=== PATIENT | female | born 1995 | race Caucasian/White ===

== ENCOUNTER 2019-02-12 18:38 | Inpatient (IN) ==
[2019-02-12] MEDS ORDERED: *HR* Labetalol 20 MG/4 ML SYRINGE IVP ONE ×2 (19:05→21:13)
[2019-02-12 19:28] LABS: Basophils % 0.4 %; Eosinophils # 0.1 K/mcL (0.0-0.6); Eosinophils % 1.6 %; Hematocrit 35.1 % (35.3-44.9); Hemoglobin 10.9 g/dL (11.5-15.4); Immature Granulocytes % 0.4 % (0-4); Lymphocytes # 2.1 K/mcL (0.6-4.6); Lymphocytes % 26.3 %; Mean Corpuscular HGB Conc 31.1 g/dL (31.6-35.5); Mean Corpuscular Hemoglobin 22.6 pg (28.0-33.3); Mean Corpuscular Volume 72.8 fL (83.0-100.0); Mean Platelet Volume 10.5 fL (9.4-12.4); Monocytes # 0.7 K/mcL (0.0-1.3); Monocytes % 8.1 %; Neutrophils # 5.1 K/mcL (1.6-8.9); Platelet Count 338 K/mcL (140-400); Red Blood Count 4.82 M/mcL (3.82-4.97); Red Cell Distribution Width 17.9 % (11.5-14.5); Segmented Neutrophils % 63.2 %
[2019-02-12 19:41] LABS: Prothrombin Time 11.3 Seconds (9.4-12.1)
[2019-02-12 19:44] LABS: Activated Partial Thrombo Time 32.5 Seconds (26.0-36.0)
[2019-02-12 19:46] LABS: Alanine Aminotransferase 11 Units/L (7-52); Albumin 4.2 g/dL (3.5-5.7); Albumin/Globulin Ratio 1.6 (1.1-2.2); Alkaline Phosphatase 68 Units/L (34-104); Aspartate Amino Transferase 13 Units/L (13-39); BUN/Creatinine Ratio 11 (6-26); Bilirubin,Direct 0.1 mg/dL (0.0-0.2); Bilirubin,Indirect 0.2 mg/dL (0.0-1.2); Bilirubin,Total 0.3 mg/dL (0.3-1.0); Blood Urea Nitrogen 18 mg/dL (6-20); Calcium 9.8 mg/dL (8.6-10.3); Carbon Dioxide 25 mEq/L (23-29); Chloride 104 mEq/L (98-107); Globulin 2.7 g/dL (2.4-3.5); Glucose 98 mg/dL (70-105); Osmolality,Calculated 284 (280-300); Potassium 3.7 mEq/L (3.5-5.1); Sodium 136 mEq/L (136-145); Total Protein 6.9 g/dL (6.4-8.9); eGFR For African Americans 47 (> 60); eGFR For Non-African Americans 39 (> 60)
[2019-02-12 20:28] LABS: Bilirubin,Urine Negative (Negative); Blood,Urine Moderate (Negative); Clarity,Urine Clear (Clear); Color,Urine Yellow (Yellow); Glucose,Urine (UA) Normal (Normal); Ketones,Urine Negative (Negative); Leukocyte Esterase,Urine Negative (Negative); Nitrite,Urine Negative (Negative); PH,Urine 5.5 pH Units (5.0-8.0); Protein,Urine >=300 mg/dL (Neg-Trace); Specific Gravity,Urine >= 1.030 (1.010-1.025); Urobilinogen,Urine Normal (Normal)
[2019-02-12 20:40] LABS: Hyaline Casts,Urine Few per lpf (None-Few); Squamous Epithelial Cell,Urine Many per lpf (None-Few)
[2019-02-12 20:41] LABS: RBC,Urine 0-3 per hpf (0-3)
[2019-02-12] MEDS ORDERED: Esmolol 2.5 GM/250 ML MLS IVC ONE (21:45)
[2019-02-12] MEDS: Esmolol 2.5 GM/250 ML MLS IVC SCH (21:56)
[2019-02-12 22:05] LABS: Troponin I < 0.03 ng/mL (< 0.04)
[2019-02-13] MEDS ORDERED: Ondansetron 4 MG/2 ML VIAL IVP PRN ×2 (01:24→18:25)
[2019-02-13] MEDS ORDERED: Naloxone 0.4 MG/ML INJ IVP PRN ×2 (01:24→18:25)
[2019-02-13] MEDS: Esmolol 2.5 GM/250 ML MLS IVC SCH ×4 (02:01→10:01)
[2019-02-13] MEDS: Acetaminophen 325 MG TABLET PO PRN ×2 (02:23→09:09)
[2019-02-13 04:43] LABS: Basophils % 0.6 %; Eosinophils # 0.2 K/mcL (0.0-0.6); Eosinophils % 2.3 %; Hemoglobin 10.2 g/dL (11.5-15.4); Immature Granulocytes % 0.3 % (0-4); Mean Corpuscular Hemoglobin 22.6 pg (28.0-33.3); Mean Corpuscular Volume 75.2 fL (83.0-100.0); Mean Platelet Volume 10.3 fL (9.4-12.4); Monocytes # 0.6 K/mcL (0.0-1.3); Neutrophils # 3.9 K/mcL (1.6-8.9); Platelet Count 328 K/mcL (140-400); Red Blood Count 4.52 M/mcL (3.82-4.97); Red Cell Distribution Width 18.4 % (11.5-14.5); Segmented Neutrophils % 57.8 %; White Blood Count 6.7 K/mcL (4.3-11.1)
[2019-02-13] MEDS ORDERED: traMADol 50 MG TABLET PO ONE (04:56)
[2019-02-13 05:02] LABS: Calcium 8.8 mg/dL (8.6-10.3); Potassium 3.4 mEq/L (3.5-5.1)
[2019-02-13] MEDS ORDERED: NIFEdipine XL (24 HR) 30 MG TAB.ER.24 PO SCH (09:00)
[2019-02-13 12:10] LABS: Amphetamine Screen,Urine Negative ng/mL (Cutoff=1000); Barbiturate Screen,Urine Negative ng/mL (Cutoff=200); Benzodiazepines Screen,Urine Negative ng/mL (Cutoff=200); Cannabinoid Screen,Urine Negative ng/mL (Cutoff = 50); Cocaine Screen,Urine Negative ng/mL (Cutoff= 300); Opiate Screen,Urine Negative ng/mL (Cutoff=300); Phencyclidine Screen,Urine Negative ng/mL (Cutoff=25)
[2019-02-13 12:30] LABS: Creatinine,Urine 120 mg/dL; Protein/Creatinine Ratio,Urine 1.98 mg/mg (0.00-0.20)
[2019-02-13] MEDS ORDERED: Acetaminophen 325 MG TABLET PO PRN (18:25)
[2019-02-13] MEDS: NIFEdipine 10 MG CAPSULE PO SCH (21:35)
[2019-02-14 05:08] LABS: Basophils % 0.2 %; Eosinophils # 0.1 K/mcL (0.0-0.6); Eosinophils % 1.3 %; Hematocrit 33.5 % (35.3-44.9); Hemoglobin 10.2 g/dL (11.5-15.4); Immature Granulocytes % 0.2 % (0-4); Lymphocytes # 1.5 K/mcL (0.6-4.6); Lymphocytes % 17.1 %; Mean Corpuscular HGB Conc 30.4 g/dL (31.6-35.5); Mean Corpuscular Hemoglobin 22.7 pg (28.0-33.3); Mean Corpuscular Volume 74.6 fL (83.0-100.0); Mean Platelet Volume 10.7 fL (9.4-12.4); Monocytes # 0.6 K/mcL (0.0-1.3); Monocytes % 7.4 %; Neutrophils # 6.3 K/mcL (1.6-8.9); Platelet Count 322 K/mcL (140-400); Red Blood Count 4.49 M/mcL (3.82-4.97); Red Cell Distribution Width 18.6 % (11.5-14.5); Segmented Neutrophils % 73.8 %; White Blood Count 8.5 K/mcL (4.3-11.1)
[2019-02-14 05:29] LABS: BUN/Creatinine Ratio 11 (6-26); Blood Urea Nitrogen 14 mg/dL (6-20); Calcium 8.8 mg/dL (8.6-10.3); Carbon Dioxide 22 mEq/L (23-29); Chloride 107 mEq/L (98-107); Glucose 105 mg/dL (70-105); Osmolality,Calculated 283 (280-300); Potassium 3.7 mEq/L (3.5-5.1); Sodium 136 mEq/L (136-145); eGFR For African Americans > 60 (> 60); eGFR For Non-African Americans 50 (> 60)
[2019-02-14] MEDS: NIFEdipine 10 MG CAPSULE PO SCH (08:30)
[2019-02-14 11:12] VITALS: BP 147/84
== END 2019-02-14 13:13 | disposition home or self-care (01) | DRG 305 ==
LOC: EMEROOARM 18:38 → ICNU 18:38 → SUATTDRO 02-13 04:12 → 2ANU 02-13 18:13
PROVIDERS: ADMIT Internal Medicine; ATTEND Internal Medicine

== ENCOUNTER 2019-04-01 17:57 | Observation (INO) ==
[2019-04-01] MEDS ORDERED: 0.9 % Sodium Chloride 1,000 ML ONE (18:08)
[2019-04-01] MEDS ORDERED: *HR* Metoprolol 5 MG/5 ML VIAL IVP ONE (18:16)
[2019-04-01] MEDS ORDERED: 0.9 % Sodium Chloride 1,000 ML IVC ONE (18:18)
[2019-04-01] MEDS ORDERED: *HR* Adenosine 6 MG/2 ML VIAL IVP ONE ×3 (18:24)
[2019-04-01] MEDS ORDERED: *HR* LORazepam 2 MG/ML VIAL ONE (18:25)
[2019-04-01] MEDS ORDERED: *HR* LORazepam 2 MG/ML VIAL IVP ONE (18:27)
[2019-04-01] MEDS ORDERED: *HR* Adenosine 6 MG/2 ML SYRINGE IVP ONE ×2 (18:30)
[2019-04-01 18:32] LABS: Prothrombin Time 10.8 Seconds (9.4-12.1)
[2019-04-01 18:35] LABS: Activated Partial Thrombo Time 33.1 Seconds (26.0-36.0); Basophils % 0.3 %; Eosinophils # 0.2 K/mcL (0.0-0.6); Eosinophils % 2.6 %; Hematocrit 40.8 % (35.3-44.9); Hemoglobin 13.1 g/dL (11.5-15.4); Immature Granulocytes % 0.5 % (0-4); Lymphocytes # 3.2 K/mcL (0.6-4.6); Lymphocytes % 36.1 %; Mean Corpuscular HGB Conc 32.1 g/dL (31.6-35.5); Mean Corpuscular Hemoglobin 25.6 pg (28.0-33.3); Mean Corpuscular Volume 79.8 fL (83.0-100.0); Mean Platelet Volume 11.5 fL (9.4-12.4); Monocytes # 0.7 K/mcL (0.0-1.3); Monocytes % 8.4 %; Neutrophils # 4.6 K/mcL (1.6-8.9); Platelet Count 371 K/mcL (140-400); Red Blood Count 5.11 M/mcL (3.82-4.97); Red Cell Distribution Width 18.5 % (11.5-14.5); Segmented Neutrophils % 52.1 %; White Blood Count 8.8 K/mcL (4.3-11.1)
[2019-04-01 18:54] LABS: Calcium 9.5 mg/dL (8.6-10.3); Magnesium 1.9 mg/dL (1.6-2.6); Potassium 2.9 mEq/L (3.5-5.1); Troponin I 0.03 ng/mL (< 0.04)
[2019-04-01] MEDS ORDERED: Potassium Chloride 40 MEQ, Lidocaine 1% 2 ML in 0.9 % Sodium Chloride 500 ML IVPB ONE (18:56)
[2019-04-01 19:07] LABS: Thyroid Stimulating Hormone 2.026 mcIU/mL (0.340-5.600)
[2019-04-01] MEDS ORDERED: Acetaminophen 325 MG TABLET PO PRN (20:46)
[2019-04-01] MEDS ORDERED: Ringers Solution, Lactated 1,000 ML IVC SCH (21:00)
[2019-04-01] MEDS: cloNIDine HCl 0.1 MG TABLET PO SCH (23:18)
[2019-04-01] MEDS: *HR* Heparin 5,000 UNIT/ML VIAL SQ SCH (23:19)
[2019-04-02 01:12] LABS: Bilirubin,Urine Negative (Negative); Blood,Urine Large (Negative); Clarity,Urine Cloudy (Clear); Color,Urine Red (Yellow); Glucose,Urine (UA) Normal (Normal); Ketones,Urine Negative (Negative); Leukocyte Esterase,Urine Trace (Negative); Nitrite,Urine Negative (Negative); Protein,Urine 100 mg/dL (Neg-Trace); Specific Gravity,Urine 1.014 (1.010-1.025); Urobilinogen,Urine Normal (Normal)
[2019-04-02 01:28] LABS: Amphetamine Screen,Urine Negative ng/mL (Cutoff=1000); Barbiturate Screen,Urine Negative ng/mL (Cutoff=200); Benzodiazepines Screen,Urine Negative ng/mL (Cutoff=200); Cannabinoid Screen,Urine Negative ng/mL (Cutoff = 50); Cocaine Screen,Urine Negative ng/mL (Cutoff= 300); Opiate Screen,Urine Negative ng/mL (Cutoff=300); Phencyclidine Screen,Urine Negative ng/mL (Cutoff=25)
[2019-04-02] MEDS: NIFEdipine XL (24 HR) 60 MG TAB.ER.24 PO SCH ×2 (01:35→09:34)
[2019-04-02 02:17] LABS: Calcium 8.5 mg/dL (8.6-10.3); Magnesium 1.9 mg/dL (1.6-2.6); Phosphorous 3.3 mg/dL (2.7-4.5); Potassium 3.8 mEq/L (3.5-5.1)
[2019-04-02] MEDS: *HR* Heparin 5,000 UNIT/ML VIAL SQ SCH (06:55)
[2019-04-02] MEDS ORDERED: 0.9 % Sodium Chloride 1,000 ML IVC SCH (08:00)
[2019-04-02] MEDS: cloNIDine HCl 0.1 MG TABLET PO SCH (09:34)
[2019-04-02 11:22] VITALS: BP 139/91
== END 2019-04-02 15:35 | disposition home or self-care (01) ==
LOC: 2NNU 17:57 → EMEROOARM 17:57 → 2NNU 21:45
PROVIDERS: ADMIT Internal Medicine; ATTEND Internal Medicine

== ENCOUNTER 2020-09-08 13:17 | Inpatient (IN) ==
[2020-09-08] MEDS ORDERED: Naloxone 0.4 MG/ML INJ IVP PRN (17:31)
[2020-09-08] MEDS ORDERED: Ondansetron 4 MG/2 ML VIAL IVP PRN (17:31)
[2020-09-08] MEDS: 0.9 % Sodium Chloride 1,000 ML IVC SCH (18:06)
[2020-09-08] MEDS: predniSONE 20 MG TABLET PO SCH (18:06)
[2020-09-08 18:18] LABS: Basophils % 0.3 %; Eosinophils # 0.2 K/mcL (0.0-0.6); Eosinophils % 3.5 %; Hemoglobin 8.4 g/dL (11.5-15.4); Immature Granulocytes % 0.3 % (0-4); Lymphocytes # 1.4 K/mcL (0.6-4.6); Lymphocytes % 20.2 %; Mean Corpuscular HGB Conc 33.6 g/dL (31.6-35.5); Mean Corpuscular Hemoglobin 28.5 pg (28.0-33.3); Mean Corpuscular Volume 84.7 fL (83.0-100.0); Mean Platelet Volume 9.7 fL (9.4-12.4); Monocytes # 0.7 K/mcL (0.0-1.3); Monocytes % 9.8 %; Neutrophils # 4.6 K/mcL (1.6-8.9); Platelet Count 274 K/mcL (140-400); Red Blood Count 2.95 M/mcL (3.82-4.97); Red Cell Distribution Width 13.7 % (11.5-14.5); Segmented Neutrophils % 65.9 %; White Blood Count 6.9 K/mcL (4.3-11.1)
[2020-09-08 18:37] LABS: Calcium 8.9 mg/dL (8.6-10.3); Potassium 4.1 mEq/L (3.5-5.1)
[2020-09-09 00:27] LABS: Bilirubin,Urine Negative (Negative); Blood,Urine Large (Negative); Clarity,Urine Turbid (Clear); Color,Urine Light-Brown (Yellow); Glucose,Urine (UA) 50 mg/dL (Normal); Ketones,Urine Negative (Negative); Leukocyte Esterase,Urine Negative (Negative); Mucus,Urine Few per lpf (None-Few); Nitrite,Urine Negative (Negative); Protein,Urine >=300 mg/dL (Neg-Trace); RBC,Urine TNTC per hpf (0-3); Specific Gravity,Urine 1.009 (1.010-1.025); Squamous Epithelial Cell,Urine Few per hpf (None-Few); Urobilinogen,Urine Normal (Normal); WBC,Urine 50-100 per hpf (0-3)
[2020-09-09 00:56] LABS: Protein/Creatinine Ratio,Urine 9.6 mg/mg (0.00-0.20)
[2020-09-09 03:56] LABS: Basophils % 0.1 %; Hematocrit 23.8 % (35.3-44.9); Hemoglobin 7.9 g/dL (11.5-15.4); Immature Granulocytes % 0.7 % (0-4); Lymphocytes # 0.5 K/mcL (0.6-4.6); Lymphocytes % 6.6 %; Mean Corpuscular HGB Conc 33.2 g/dL (31.6-35.5); Mean Corpuscular Hemoglobin 28.1 pg (28.0-33.3); Mean Corpuscular Volume 84.7 fL (83.0-100.0); Mean Platelet Volume 9.8 fL (9.4-12.4); Monocytes # 0.1 K/mcL (0.0-1.3); Monocytes % 1.1 %; Neutrophils # 6.9 K/mcL (1.6-8.9); Platelet Count 280 K/mcL (140-400); Red Blood Count 2.81 M/mcL (3.82-4.97); Red Cell Distribution Width 13.7 % (11.5-14.5); Segmented Neutrophils % 91.5 %; White Blood Count 7.5 K/mcL (4.3-11.1)
[2020-09-09 04:05] LABS: INR 1.1; Prothrombin Time 12.6 Seconds (9.4-12.1)
[2020-09-09 04:13] LABS: Albumin 3.6 g/dL (3.5-5.7); Calcium 8.5 mg/dL (8.6-10.3); Magnesium 2.5 mg/dL (1.6-2.6); Phosphorous 7.5 mg/dL (2.7-4.5); Potassium 4.8 mEq/L (3.5-5.1)
[2020-09-09] MEDS: NIFEdipine XL (24 HR) 60 MG TAB.ER.24 PO SCH (08:12)
[2020-09-09] MEDS: estradioL 0.5 MG TABLET PO SCH (08:13)
[2020-09-09] MEDS: predniSONE 20 MG TABLET PO SCH (08:13)
[2020-09-09] MEDS: 0.9 % Sodium Chloride 1,000 ML IVC SCH (08:13)
[2020-09-09] MEDS: Acetaminophen 325 MG TABLET PO PRN (08:13)
[2020-09-09] MEDS ORDERED: cloNIDine HCL 0.1 MG TABLET PO PRN (08:31)
[2020-09-09] MEDS ORDERED: *HR* Labetalol 20 MG/4 ML SYRINGE IVP ONE (11:41)
[2020-09-09] MEDS ORDERED: *HR* FentaNYL (PF) 100 MCG/2 ML VIAL ONE (11:42)
[2020-09-09] MEDS ORDERED: *HR* Midazolam HCl 2 MG/2 ML VIAL ONE (11:42)
[2020-09-09] MEDS ORDERED: 0.9 % Sodium Chloride 500 ML ONE (11:43)
[2020-09-09] MEDS ORDERED: *HR* FentaNYL (PF) 100 MCG/2 ML VIAL IVP ONE (11:44)
[2020-09-09] MEDS ORDERED: *HR* Midazolam HCl 2 MG/2 ML VIAL IVP ONE (11:44)
[2020-09-09] MEDS: Nitroglycerin 1 INCH/GM PACKET TP SCH (13:15)
[2020-09-09] MEDS ORDERED: Desmopressin Acetate 30 MCG in 0.9 % Sodium Chloride 50 ML IVPB ONE (14:30)
[2020-09-09 19:44] LABS: Hematocrit 20.4 % (35.3-44.9); Hemoglobin 6.8 g/dL (11.5-15.4)
[2020-09-10 03:06] LABS: Basophils % 0.1 %; Hematocrit 18.9 % (35.3-44.9); Hemoglobin 6.2 g/dL (11.5-15.4); Immature Granulocytes % 0.9 % (0-4); Lymphocytes # 0.6 K/mcL (0.6-4.6); Lymphocytes % 5.9 %; Mean Corpuscular HGB Conc 32.8 g/dL (31.6-35.5); Mean Corpuscular Hemoglobin 28.4 pg (28.0-33.3); Mean Corpuscular Volume 86.7 fL (83.0-100.0); Mean Platelet Volume 10.1 fL (9.4-12.4); Monocytes # 0.9 K/mcL (0.0-1.3); Monocytes % 8.7 %; Neutrophils # 8.8 K/mcL (1.6-8.9); Platelet Count 224 K/mcL (140-400); Red Blood Count 2.18 M/mcL (3.82-4.97); Red Cell Distribution Width 14.6 % (11.5-14.5); Segmented Neutrophils % 84.4 %; White Blood Count 10.4 K/mcL (4.3-11.1)
[2020-09-10 03:22] LABS: Calcium 8.2 mg/dL (8.6-10.3); Potassium 4.2 mEq/L (3.5-5.1)
[2020-09-10] MEDS: Nitroglycerin 1 INCH/GM PACKET TP SCH ×2 (05:46→11:03)
[2020-09-10] MEDS: Acetaminophen 325 MG TABLET PO PRN ×2 (05:48→12:06)
[2020-09-10] MEDS: estradioL 0.5 MG TABLET PO SCH (08:23)
[2020-09-10] MEDS: NIFEdipine XL (24 HR) 60 MG TAB.ER.24 PO SCH (08:23)
[2020-09-10] MEDS: predniSONE 20 MG TABLET PO SCH (08:24)
[2020-09-10 15:38] LABS: Complement C3 108 mg/dL (87-200)
[2020-09-10 16:53] LABS: Bacteria,Urine Few per hpf (None-Few); Bilirubin,Urine Negative (Negative); Blood,Urine Large (Negative); Clarity,Urine Turbid (Clear); Color,Urine Colorless (Yellow); Glucose,Urine (UA) 70 mg/dL (Normal); Ketones,Urine Negative (Negative); Leukocyte Esterase,Urine Trace (Negative); Mucus,Urine Few per lpf (None-Few); Nitrite,Urine Negative (Negative); PH,Urine 6.5 pH Units (5.0-8.0); Protein,Urine >=300 mg/dL (Neg-Trace); RBC,Urine TNTC per hpf (0-3); Specific Gravity,Urine 1.013 (1.010-1.025); Squamous Epithelial Cell,Urine Few per hpf (None-Few); Urobilinogen,Urine Normal (Normal); WBC,Urine 15-30 per hpf (0-3)
[2020-09-10 18:38] LABS: Hematocrit 25.6 % (35.3-44.9)
[2020-09-10 18:39] LABS: Hemoglobin 8.5 g/dL (11.5-15.4)
[2020-09-10 18:57] LABS: Calcium 8.6 mg/dL (8.6-10.3); Potassium 4.5 mEq/L (3.5-5.1)
[2020-09-11 02:02] LABS: Basophils % 0.1 %; Hematocrit 24.6 % (35.3-44.9); Hemoglobin 8.2 g/dL (11.5-15.4); Immature Granulocytes % 5.2 % (0-4); Lymphocytes # 0.6 K/mcL (0.6-4.6); Lymphocytes % 5.3 %; Mean Corpuscular HGB Conc 33.3 g/dL (31.6-35.5); Mean Platelet Volume 9.5 fL (9.4-12.4); Monocytes # 0.4 K/mcL (0.0-1.3); Monocytes % 2.9 %; Neutrophils # 10.3 K/mcL (1.6-8.9); Platelet Count 232 K/mcL (140-400); Red Blood Count 2.93 M/mcL (3.82-4.97); Red Cell Distribution Width 13.9 % (11.5-14.5); Segmented Neutrophils % 86.5 %; White Blood Count 11.9 K/mcL (4.3-11.1)
[2020-09-11 02:19] LABS: Calcium 8.1 mg/dL (8.6-10.3); Potassium 4.7 mEq/L (3.5-5.1)
[2020-09-11 02:37] LABS: Platelet Estimate Normal (Normal)
[2020-09-11] MEDS: Nitroglycerin 1 INCH/GM PACKET TP SCH ×2 (05:46→10:10)
[2020-09-11] MEDS: predniSONE 20 MG TABLET PO SCH (08:45)
[2020-09-11] MEDS: NIFEdipine XL (24 HR) 60 MG TAB.ER.24 PO SCH (08:45)
[2020-09-11] MEDS: estradioL 0.5 MG TABLET PO SCH (08:45)
[2020-09-11] MEDS: Acetaminophen 325 MG TABLET PO PRN (10:06)
[2020-09-11] MEDS ORDERED: Sennosides/Docusate Sodium TABLET PO PRN (12:52)
[2020-09-12 02:49] LABS: Basophils % 0.2 %; Eosinophils % 0.1 %; Hematocrit 24.2 % (35.3-44.9); Immature Granulocytes % 5.5 % (0-4); Lymphocytes # 0.8 K/mcL (0.6-4.6); Mean Corpuscular HGB Conc 33.1 g/dL (31.6-35.5); Mean Corpuscular Hemoglobin 27.9 pg (28.0-33.3); Mean Corpuscular Volume 84.3 fL (83.0-100.0); Mean Platelet Volume 10.4 fL (9.4-12.4); Monocytes % 9.3 %; Neutrophils # 8.4 K/mcL (1.6-8.9); Platelet Count 245 K/mcL (140-400); Red Blood Count 2.87 M/mcL (3.82-4.97); Segmented Neutrophils % 77.9 %; White Blood Count 10.8 K/mcL (4.3-11.1)
[2020-09-12 03:11] LABS: Calcium 8.1 mg/dL (8.6-10.3); Potassium 4.8 mEq/L (3.5-5.1)
[2020-09-12 03:20] LABS: Anisocytosis 1+ (Not Present); Microcytosis Present (Not Present)
[2020-09-12 03:21] LABS: Platelet Estimate Normal (Normal)
[2020-09-12] MEDS: NIFEdipine XL (24 HR) 60 MG TAB.ER.24 PO SCH (08:00)
[2020-09-12] MEDS: estradioL 0.5 MG TABLET PO SCH (08:00)
[2020-09-12] MEDS: predniSONE 20 MG TABLET PO SCH (08:01)
[2020-09-12] MEDS ORDERED: *HR* Heparin 10,000 UNIT/10 ML VIAL IV PRN (09:21)
[2020-09-12] MEDS ORDERED: 0.9 % Sodium Chloride 250 ML IVC PRN (09:21)
[2020-09-12] MEDS ORDERED: 0.9 % Sodium Chloride 1,000 ML PRIME SCH (09:30)
[2020-09-12] MEDS: Acetaminophen 325 MG TABLET PO PRN ×2 (10:03→18:28)
[2020-09-12 10:28] LABS: Hepatitis B Surface Antibody < 3.10 mIU/mL
[2020-09-12] MEDS ORDERED: Heparin 1,000 UNITS/500 mL 500 ML ONE (10:36)
[2020-09-12] MEDS ORDERED: Lidocaine/EPI 1:100k 1% 50 ML VIAL ONE (10:37)
[2020-09-12 10:39] LABS: Hepatitis B Surface Antigen Nonreactive (Nonreactive)
[2020-09-12] MEDS ORDERED: Perflutren Lipid Microsphere 1.3 ML in 0.9 % Sodium Chloride 8.7 ML IVP PRN (10:50)
[2020-09-12] MEDS ORDERED: *HR* LORazepam 2 MG/ML VIAL IVP ONE (11:16)
[2020-09-12] MEDS ORDERED: *HR* Heparin 5,000 UNIT/ML VIAL ONE (12:30)
[2020-09-12] MEDS ORDERED: NIFEdipine XL (24 HR) 30 MG TAB.ER.24 PO ONE (14:58)
[2020-09-13 02:52] LABS: Basophils % 0.2 %; Eosinophils % 0.1 %; Hematocrit 24.3 % (35.3-44.9); Hemoglobin 8.3 g/dL (11.5-15.4); Immature Granulocytes % 4.3 % (0-4); Lymphocytes # 1.2 K/mcL (0.6-4.6); Lymphocytes % 12.2 %; Mean Corpuscular HGB Conc 34.2 g/dL (31.6-35.5); Mean Corpuscular Hemoglobin 28.3 pg (28.0-33.3); Mean Corpuscular Volume 82.9 fL (83.0-100.0); Mean Platelet Volume 9.5 fL (9.4-12.4); Monocytes # 1.2 K/mcL (0.0-1.3); Monocytes % 12.2 %; Neutrophils # 7.2 K/mcL (1.6-8.9); Platelet Count 216 K/mcL (140-400); Red Blood Count 2.93 M/mcL (3.82-4.97); Red Cell Distribution Width 13.9 % (11.5-14.5); White Blood Count 10.1 K/mcL (4.3-11.1)
[2020-09-13 03:11] LABS: Calcium 8.1 mg/dL (8.6-10.3)
[2020-09-13] MEDS ORDERED: *HR* Heparin 10,000 UNIT/10 ML VIAL IV PRN (07:23)
[2020-09-13] MEDS ORDERED: 0.9 % Sodium Chloride 250 ML IVC PRN (07:23)
[2020-09-13] MEDS: predniSONE 20 MG TABLET PO SCH (08:11)
[2020-09-13] MEDS: estradioL 0.5 MG TABLET PO SCH (08:11)
[2020-09-13] MEDS: NIFEdipine XL (24 HR) 30 MG TAB.ER.24 PO SCH (08:11)
[2020-09-13] MEDS: Acetaminophen 325 MG TABLET PO PRN ×2 (08:13→16:31)
[2020-09-13] MEDS: cloNIDine HCL 0.1 MG TABLET PO PRN (16:35)
[2020-09-14] MEDS: cloNIDine HCL 0.1 MG TABLET PO PRN (03:54)
[2020-09-14 05:48] LABS: Basophils % 0.1 %; Eosinophils # 0.1 K/mcL (0.0-0.6); Eosinophils % 0.5 %; Hematocrit 24.6 % (35.3-44.9); Hemoglobin 8.2 g/dL (11.5-15.4); Immature Granulocytes % 1.9 % (0-4); Lymphocytes % 17.9 %; Mean Corpuscular HGB Conc 33.3 g/dL (31.6-35.5); Mean Corpuscular Hemoglobin 28.6 pg (28.0-33.3); Mean Corpuscular Volume 85.7 fL (83.0-100.0); Mean Platelet Volume 10.1 fL (9.4-12.4); Monocytes # 1.3 K/mcL (0.0-1.3); Monocytes % 12.3 %; Neutrophils # 7.3 K/mcL (1.6-8.9); Platelet Count 203 K/mcL (140-400); Red Blood Count 2.87 M/mcL (3.82-4.97); Red Cell Distribution Width 13.7 % (11.5-14.5); Segmented Neutrophils % 67.3 %; White Blood Count 10.9 K/mcL (4.3-11.1)
[2020-09-14 06:14] LABS: Calcium 8.2 mg/dL (8.6-10.3); Potassium 4.1 mEq/L (3.5-5.1)
[2020-09-14 06:52] LABS: ANA IgG by ELISA NONE DETECTED (None Detected)
[2020-09-14] MEDS: estradioL 0.5 MG TABLET PO SCH (07:19)
[2020-09-14] MEDS: predniSONE 20 MG TABLET PO SCH (07:20)
[2020-09-14] MEDS: NIFEdipine XL (24 HR) 30 MG TAB.ER.24 PO SCH (07:20)
[2020-09-14] MEDS: Acetaminophen 325 MG TABLET PO PRN ×2 (07:22→14:42)
[2020-09-14] MEDS ORDERED: *HR* Heparin 10,000 UNIT/10 ML VIAL IV PRN (07:22)
[2020-09-14] MEDS ORDERED: 0.9 % Sodium Chloride 250 ML IVC PRN (07:22)
[2020-09-14] MEDS ORDERED: DilTIAZem CD (24hr) 180 MG CAP.ER.24H PO SCH (09:00)
[2020-09-14 11:48] LABS: Serine Protease-3 Antibody 1 AU/mL (0-19)
[2020-09-14] MEDS: NIFEdipine XL (24 HR) 60 MG TAB.ER.24 PO SCH (20:04)
[2020-09-15] MEDS: cloNIDine HCL 0.1 MG TABLET PO PRN (00:19)
[2020-09-15] MEDS: Acetaminophen 325 MG TABLET PO PRN (02:20)
[2020-09-15 02:32] LABS: Hematocrit 24.7 % (35.3-44.9); Hemoglobin 8.2 g/dL (11.5-15.4); Mean Corpuscular HGB Conc 33.2 g/dL (31.6-35.5); Mean Corpuscular Hemoglobin 28.4 pg (28.0-33.3); Mean Corpuscular Volume 85.5 fL (83.0-100.0); Mean Platelet Volume 10.1 fL (9.4-12.4); Platelet Count 193 K/mcL (140-400); Red Blood Count 2.89 M/mcL (3.82-4.97); Red Cell Distribution Width 13.5 % (11.5-14.5); White Blood Count 11.3 K/mcL (4.3-11.1)
[2020-09-15 02:54] LABS: Calcium 7.9 mg/dL (8.6-10.3); Potassium 3.9 mEq/L (3.5-5.1)
[2020-09-15] MEDS: predniSONE 20 MG TABLET PO SCH (07:51)
[2020-09-15] MEDS: estradioL 0.5 MG TABLET PO SCH (07:52)
[2020-09-15] MEDS: NIFEdipine XL (24 HR) 60 MG TAB.ER.24 PO SCH ×2 (07:52→20:12)
[2020-09-15] MEDS ORDERED: hydrALAZINE 25 MG TABLET PO SCH (16:00)
[2020-09-15] MEDS: hydrALAZINE 25 MG TABLET PO SCH ×2 (16:06→20:12)
[2020-09-16 05:26] LABS: Hematocrit 24.2 % (35.3-44.9); Mean Corpuscular HGB Conc 33.1 g/dL (31.6-35.5); Mean Corpuscular Hemoglobin 28.4 pg (28.0-33.3); Mean Corpuscular Volume 85.8 fL (83.0-100.0); Mean Platelet Volume 10.2 fL (9.4-12.4); Platelet Count 193 K/mcL (140-400); Red Blood Count 2.82 M/mcL (3.82-4.97); Red Cell Distribution Width 13.8 % (11.5-14.5); White Blood Count 12.2 K/mcL (4.3-11.1)
[2020-09-16 05:55] LABS: Phosphorous 5.1 mg/dL (2.7-4.5); Potassium 3.9 mEq/L (3.5-5.1)
[2020-09-16] MEDS ORDERED: 0.9 % Sodium Chloride 250 ML IVC PRN (07:11)
[2020-09-16] MEDS ORDERED: *HR* Heparin 10,000 UNIT/10 ML VIAL IV PRN (07:11)
[2020-09-16] MEDS ORDERED: 0.9 % Sodium Chloride 1,000 ML PRIME SCH (07:15)
[2020-09-16] MEDS: estradioL 0.5 MG TABLET PO SCH (12:14)
[2020-09-16] MEDS: predniSONE 20 MG TABLET PO SCH (12:14)
[2020-09-16] MEDS ORDERED: Iron Sucrose Complex 200 MG in 0.9 % Sodium Chloride 100 ML IVPB ONE (12:14)
[2020-09-16] MEDS: hydrALAZINE 25 MG TABLET PO SCH ×2 (12:15→16:24)
[2020-09-16] MEDS: NIFEdipine XL (24 HR) 60 MG TAB.ER.24 PO SCH (12:15)
[2020-09-16] MEDS ORDERED: *HR* LORazepam 2 MG/ML VIAL IVP ONE (12:31)
[2020-09-16] MEDS ORDERED: *HR* FentaNYL (PF) 100 MCG/2 ML VIAL IVP ONE (12:38)
[2020-09-16] MEDS ORDERED: *HR* Midazolam HCl 2 MG/2 ML VIAL IVP ONE (12:38)
[2020-09-16] MEDS ORDERED: Lidocaine/EPI 1:100k 1% 50 ML VIAL ONE (12:47)
[2020-09-16] MEDS ORDERED: Heparin 1,000 UNITS/500 mL 500 ML ONE (12:47)
[2020-09-16] MEDS ORDERED: CeFAZolin 2,000 MG/50 ML BAG IVPB ONE (13:00)
[2020-09-16] MEDS ORDERED: 0.9 % Sodium Chloride 500 ML ONE (13:04)
[2020-09-16] MEDS ORDERED: *HR* Heparin 5,000 UNIT/ML VIAL ONE (13:31)
[2020-09-16 15:35] VITALS: BP 183/101
[2020-09-16] MEDS: Acetaminophen 325 MG TABLET PO PRN (16:24)
== END 2020-09-16 16:43 | disposition home or self-care (01) | DRG 469 ==
LOC: 2ANU → SUATTDRO 17:20
PROVIDERS: ADMIT Internal Medicine; ATTEND Student in an Organized Health Care Education/Training Program
PROC: IRPERMA (2020-09-16 12:00)

== ENCOUNTER 2020-11-03 16:53 | Inpatient (IN) ==
[2020-11-03] MEDS ORDERED: 0.9 % Sodium Chloride 1,000 ML ONE (16:56)
[2020-11-03] MEDS ORDERED: Calcium Gluconate 1gm/50mL 1 GM/50 ML BAG IVPB ONE ×2 (17:08→17:21)
[2020-11-03] MEDS ORDERED: *HR* Adenosine 6 MG/2 ML SYRINGE IVP ONE ×2 (17:10)
[2020-11-03] MEDS ORDERED: niCARdipine 20 MG/200 ML MLS IVC ONE (17:35)
[2020-11-03] MEDS: niCARdipine 20 MG/200 ML MLS IVC SCH ×2 (17:50→22:25)
[2020-11-03 18:08] LABS: Hematocrit 43.1 % (35.3-44.9); Hemoglobin 13.9 g/dL (11.5-15.4); Mean Corpuscular HGB Conc 32.3 g/dL (31.6-35.5); Mean Corpuscular Hemoglobin 29.6 pg (28.0-33.3); Mean Corpuscular Volume 91.7 fL (83.0-100.0); Mean Platelet Volume 9.7 fL (9.4-12.4); Nucleated Red Blood Cells 0.2 /100 WBC (0); Platelet Count 129 K/mcL (140-400)
[2020-11-03 18:09] LABS: Prothrombin Time 12.1 Seconds (9.4-12.1)
[2020-11-03 18:11] LABS: Activated Partial Thrombo Time 23.6 Seconds (26.0-36.0)
[2020-11-03 18:17] LABS: White Blood Count 35.5 K/mcL (4.3-11.1)
[2020-11-03] MEDS ORDERED: Isovue-370 500 ML BOTTLE IVP ONE (18:24)
[2020-11-03 18:26] LABS: Bacteria,Urine Few per hpf (None-Few); Bilirubin,Urine Negative (Negative); Blood,Urine Large (Negative); Clarity,Urine Turbid (Clear); Color,Urine Light-Orange (Yellow); Glucose,Urine (UA) Normal (Normal); Hyaline Casts,Urine Few per lpf (None Seen); Ketones,Urine Negative (Negative); Leukocyte Esterase,Urine Small (Negative); Mucus,Urine Few per lpf (None-Few); Nitrite,Urine Negative (Negative); Protein,Urine >=300 mg/dL (Neg-Trace); RBC,Urine 30-50 per hpf (0-3); Specific Gravity,Urine 1.019 (1.010-1.025); Squamous Epithelial Cell,Urine Moderate per hpf (None-Few); Urobilinogen,Urine Normal (Normal); WBC,Urine 30-50 per hpf (0-3)
[2020-11-03 18:27] LABS: Amphetamine Screen,Urine Negative ng/mL (Cutoff=1000); Barbiturate Screen,Urine Negative ng/mL (Cutoff=200); Benzodiazepines Screen,Urine Negative ng/mL (Cutoff=200); Cannabinoid Screen,Urine Negative ng/mL (Cutoff = 50); Cocaine Screen,Urine Negative ng/mL (Cutoff= 300); Opiate Screen,Urine Negative ng/mL (Cutoff=300); Phencyclidine Screen,Urine Negative ng/mL (Cutoff=25)
[2020-11-03 18:28] LABS: VBG Base Excess -5 mEq/L; VBG Chloride 111 mEq/L (98-107); VBG Glucose 54 mg/dl (65-95); VBG HCO3 19 mEq/L (21-27); VBG Ionized Calcium 1.13 mmol/L (1.15-1.35); VBG Oxygen Saturation 100 %; VBG PCO2 31 mmHg (41-51); VBG PH 7.39 pH Units (7.32-7.42); VBG PO2 244 mmHg (25-50); VBG Total CO2 20 mEq/L
[2020-11-03 18:31] LABS: Alanine Aminotransferase 22 Units/L (7-52); Albumin 3.4 g/dL (3.5-5.7); Alkaline Phosphatase 65 Units/L (34-104); Aspartate Amino Transferase 19 Units/L (13-39); BUN/Creatinine Ratio 6 (6-26); Bilirubin,Direct 0.2 mg/dL (0.0-0.2); Bilirubin,Indirect 0.6 mg/dL (0.0-1.0); Bilirubin,Total 0.8 mg/dL (0.3-1.0); Blood Urea Nitrogen 66 mg/dL (6-20); Calcium 8.8 mg/dL (8.6-10.3); Carbon Dioxide 17 mEq/L (23-29); Chloride 110 mEq/L (98-107); Ethanol < 10 mg/dL (Less than 10); Globulin 1.7 g/dL (2.4-3.5); Glucose 35 mg/dL (70-105); Osmolality,Calculated 306 (280-300); Potassium 4.5 mEq/L (3.5-5.1); Sodium 140 mEq/L (136-145); Total Protein 5.1 g/dL (6.4-8.9); Troponin I 0.11 ng/mL (< 0.04); eGFR For African Americans 5 (> 60); eGFR For Non-African Americans 4 (> 60)
[2020-11-03] MEDS ORDERED: *HR* Dextrose 50 % in Water (Vial) 50 ML VIAL ONE ×2 (18:33→21:38)
[2020-11-03] MEDS ORDERED: *HR* Dextrose 50 % in Water (Vial) 50 ML VIAL IVP ONE ×3 (18:35→21:39)
[2020-11-03 18:42] LABS: Eosinophils # 1.1 K/mcL (0.0-0.6); Lymphocytes # 3.9 K/mcL (0.6-4.6); Monocytes # 0.7 K/mcL (0.0-1.3); Neutrophils # 29.8 K/mcL (1.6-8.9); Platelet Estimate Slight Decrease (Normal); Reactive Lymphocytes Present (Not Present); Toxic Granulation Present (Not Present)
[2020-11-03] MEDS ORDERED: Vancomycin 1,500 MG/265 ML IV.SOLN IVPB ONE (18:45)
[2020-11-03] MEDS ORDERED: Cefepime HCl 1,000 MG in Water for inj. (sterile) 10 ML IVP ONE (18:45)
[2020-11-03 18:49] LABS: Thyroid Stimulating Hormone 5.132 mcIU/mL (0.340-5.600)
[2020-11-03 19:17] LABS: Adenovirus Not Detected (Not Detect); Coronavirus 229E Not Detected (Not Detect); Coronavirus HKU1 Not Detected (Not Detect); Coronavirus NL63 Not Detected (Not Detect); Coronavirus OC43 Not Detected (Not Detect); Human Metapneumovirus Not Detected (Not Detect); Human Rhinovirus/Enterovirus Not Detected (Not Detect); Influenza A Subtype 2009 H1 Not Detected (Not Detect); Influenza B Not Detected (Not Detect); Parainfluenza Virus 1 Not Detected (Not Detect); Parainfluenza Virus 2 Not Detected (Not Detect); Parainfluenza Virus 3 Not Detected (Not Detect); Parainfluenza Virus 4 Not Detected (Not Detect); Respiratory Syncytial Virus Not Detected (Not Detect); SARS-CoV-2 Not Detected (Not Detect)
[2020-11-03 19:18] LABS: Bordetella Pertussis Not Detected (Not Detect); Chlamydophila pneumoniae Not Detected (Not Detect); Mycoplasma pneumoniae Not Detected (Not Detect)
[2020-11-03] MEDS ORDERED: Naloxone 0.4 MG/ML INJ IVP PRN (21:35)
[2020-11-03 22:59] LABS: Adenovirus F 40/41 PCR Not detected (Not detect); Astrovirus PCR Not detected (Not detect); C.difficile Toxin A/B Gene PCR Not detected (Not detect); Campylobacter by PCR Not detected (Not detect); Cryptosporidium by PCR Not detected (Not detect); Cyclospora cayetanensis PCR Not detected (Not detect); E. coli O157 by PCR Not detected (Not detect); Entamoeba histolytica PCR Not detected (Not detect); Enteroaggregative E.coli(EAEC) Not detected (Not detect); Enteropathogenic E.coli(EPEC) Not detected (Not detect); Enterotoxigenic E.coli (ETEC) Not detected (Not detect); Giardia lamblia PCR Not detected (Not detect); Norovirus GI/GII PCR Not detected (Not detect); Plesiomonas shigelloides PCR Not detected (Not detect); Rotavirus A PCR Not detected (Not detect); Salmonella PCR Not detected (Not detect); Sapovirus PCR Not detected (Not detect); Shig/EnteroinvasiveE coli EIEC Not detected (Not detect); Shigalike tox-prod E coli STEC Not detected (Not detect); Vibrio PCR Not detected (Not detect); Vibrio cholerae PCR Not detected (Not detect); Yersinia enterocolitica PCR Not detected (Not detect)
[2020-11-04] MEDS: niCARdipine 20 MG/200 ML MLS IVC SCH ×7 (00:27→19:32)
[2020-11-04 00:44] LABS: Basophils % 0.3 %; Hematocrit 38.2 % (35.3-44.9); Lymphocytes % 7.7 %
[2020-11-04 00:46] LABS: Basophils # 0.1 K/mcL (0.0-0.2); Eosinophils # 0.2 K/mcL (0.0-0.6); Eosinophils % 0.7 %; Hemoglobin 12.3 g/dL (11.5-15.4); Immature Granulocytes % 2.1 % (0-4); Immature Platelets 2.9 % (1.1-6.1); Lymphocytes # 1.8 K/mcL (0.6-4.6); Mean Corpuscular HGB Conc 32.2 g/dL (31.6-35.5); Mean Corpuscular Hemoglobin 29.5 pg (28.0-33.3); Mean Corpuscular Volume 91.6 fL (83.0-100.0); Monocytes # 0.9 K/mcL (0.0-1.3); Monocytes % 3.7 %; Neutrophils # 19.9 K/mcL (1.6-8.9); Nucleated Red Blood Cells 0.1 /100 WBC (0); Red Blood Count 4.17 M/mcL (3.82-4.97); Red Cell Distribution Width 17.1 % (11.5-14.5); Segmented Neutrophils % 85.5 %; White Blood Count 23.3 K/mcL (4.3-11.1)
[2020-11-04 00:47] LABS: Platelet Count 76 K/mcL (140-400)
[2020-11-04] MEDS ORDERED: *HR* Dextrose 50 % in Water (Vial) 50 ML VIAL IVP PRN (01:17)
[2020-11-04] MEDS ORDERED: Dextrose Gel 15 GM/37.5 ML TUBE PO PRN ×2 (01:17)
[2020-11-04] MEDS ORDERED: D5% in Water 1,000 ML IVC PRN (01:17)
[2020-11-04 01:19] LABS: Albumin/Globulin Ratio 1.7 (1.1-2.2); Bilirubin,Total 0.7 mg/dL (0.3-1.0); Calcium 8.1 mg/dL (8.6-10.3); Globulin 1.8 g/dL (2.4-3.5); Potassium 5.1 mEq/L (3.5-5.1); Total Protein 4.8 g/dL (6.4-8.9)
[2020-11-04] MEDS ORDERED: *HR* Heparin 5,000 UNIT/ML VIAL IVP PRN ×2 (01:32)
[2020-11-04] MEDS ORDERED: *HR* Heparin 5,000 UNIT/ML VIAL IVP ONE (01:32)
[2020-11-04] MEDS ORDERED: 0.9 % Sodium Chloride 500 ML IVC ONE (01:34)
[2020-11-04] MEDS ORDERED: Heparin 25,000UNIT/250ML 1/2NS 25,000 UNIT/250 ML IV.SOLN IVC SCH (01:45)
[2020-11-04 02:33] LABS: Mean Corpuscular Volume 92.1 fL (83.0-100.0)
[2020-11-04 02:35] LABS: Hematocrit 38.4 % (35.3-44.9); Hemoglobin 12.3 g/dL (11.5-15.4); Immature Platelets 2.6 % (1.1-6.1); Mean Corpuscular Hemoglobin 29.5 pg (28.0-33.3); Mean Platelet Volume 9.9 fL (9.4-12.4); Red Blood Count 4.17 M/mcL (3.82-4.97); White Blood Count 20.1 K/mcL (4.3-11.1)
[2020-11-04 02:39] LABS: Heparin anti-factor XA UFH 0.04 IU/mL (0.30-0.70); INR 1.1; Prothrombin Time 13.1 Seconds (9.4-12.1)
[2020-11-04] MEDS ORDERED: *HR* Heparin 5,000 UNIT/ML VIAL SQ SCH (06:00)
[2020-11-04] MEDS ORDERED: cefTRIAXone 1,000 MG in 0.9 % Sodium Chloride Mini Bag 100 ML IVPB ONE (09:00)
[2020-11-04] MEDS ORDERED: Azithromycin 500 MG in 0.9 % Sodium Chloride 250 ML IVPB SCH (09:00)
[2020-11-04] MEDS ORDERED: 0.9 % Sodium Chloride 250 ML IVC PRN (09:01)
[2020-11-04] MEDS ORDERED: 0.9 % Sodium Chloride 1,000 ML PRIME SCH (09:15)
[2020-11-04] MEDS: hydrALAZINE 25 MG TABLET PO SCH ×2 (10:30→16:43)
[2020-11-04] MEDS ORDERED: Isovue-370 500 ML BOTTLE IVP ONE (10:33)
[2020-11-04 11:17] LABS: Hepatitis B Surface Antibody < 3.10 mIU/mL
[2020-11-04] MEDS: Pantoprazole 40 MG VIAL IVP SCH ×2 (11:23→16:45)
[2020-11-04 12:35] LABS: Hepatitis B Surface Antigen Nonreactive (Nonreactive)
[2020-11-04] MEDS ORDERED: Hydrocortisone Sodium Succ 100 MG/2 ML VIAL IVP SCH ×2 (14:00)
[2020-11-04] MEDS ORDERED: MetroNIDAZOLE 500 MG/100 ML 500 MG/100 ML BAG IVPB SCH (16:00)
[2020-11-04] MEDS ORDERED: GI Cocktail 40 ML EACH PO ONE (16:20)
[2020-11-04] MEDS ORDERED: Acetaminophen 325 MG TABLET PO PRN (16:34)
[2020-11-04] MEDS: Doxycycline 100 MG in 0.9 % Sodium Chloride Mini Bag 100 ML IVPB SCH (16:43)
[2020-11-04] MEDS: Hydrocortisone Sodium Succ 100 MG/2 ML VIAL IVP SCH (16:44)
[2020-11-04] MEDS: Cefepime HCl 1,000 MG in Water for inj. (sterile) 20 ML IVP SCH (16:45)
[2020-11-05] MEDS: Hydrocortisone Sodium Succ 100 MG/2 ML VIAL IVP SCH ×3 (00:19→16:20)
[2020-11-05] MEDS: hydrALAZINE 25 MG TABLET PO SCH ×3 (00:19→16:20)
[2020-11-05] MEDS: niCARdipine 20 MG/200 ML MLS IVC SCH ×3 (00:21→08:55)
[2020-11-05] MEDS: Doxycycline 100 MG in 0.9 % Sodium Chloride Mini Bag 100 ML IVPB SCH ×2 (02:13→16:19)
[2020-11-05] MEDS: Pantoprazole 40 MG VIAL IVP SCH ×3 (06:04→21:03)
[2020-11-05 06:15] LABS: Albumin/Globulin Ratio 1.6 (1.1-2.2); Bilirubin,Total 0.5 mg/dL (0.3-1.0); Globulin 1.9 g/dL (2.4-3.5); Magnesium 2.1 mg/dL (1.6-2.6); Phosphorous 6.9 mg/dL (2.7-4.5); Potassium 4.7 mEq/L (3.5-5.1); Total Protein 4.9 g/dL (6.4-8.9); Troponin I 0.07 ng/mL (< 0.04)
[2020-11-05] MEDS ORDERED: 0.9 % Sodium Chloride 250 ML IVC PRN (07:06)
[2020-11-05 07:22] LABS: Hematocrit 24.8 % (35.3-44.9); Hemoglobin 8.3 g/dL (11.5-15.4); Lymphocytes # 0.2 K/mcL (0.6-4.6); Lymphocytes % 3.5 %; Mean Corpuscular HGB Conc 33.5 g/dL (31.6-35.5); Mean Corpuscular Hemoglobin 30.2 pg (28.0-33.3); Mean Corpuscular Volume 90.2 fL (83.0-100.0); Mean Platelet Volume 10.7 fL (9.4-12.4); Monocytes # 0.3 K/mcL (0.0-1.3); Monocytes % 4.1 %; Neutrophils # 5.8 K/mcL (1.6-8.9); Red Blood Count 2.75 M/mcL (3.82-4.97); Red Cell Distribution Width 17.2 % (11.5-14.5); Segmented Neutrophils % 91.4 %; White Blood Count 6.3 K/mcL (4.3-11.1)
[2020-11-05 07:23] LABS: Platelet Count 72 K/mcL (140-400)
[2020-11-05] MEDS: Calcium Acetate 667 MG CAPSULE PO SCH ×2 (12:04→16:20)
[2020-11-05] MEDS ORDERED: *HR* Heparin 10,000 UNIT/10 ML VIAL IV PRN (12:44)
[2020-11-05 15:20] LABS: Hematocrit 26.2 % (35.3-44.9); Hemoglobin 8.6 g/dL (11.5-15.4)
[2020-11-05] MEDS: Cefepime HCl 1,000 MG in Water for inj. (sterile) 20 ML IVP SCH (18:24)
[2020-11-06] MEDS: hydrALAZINE 25 MG TABLET PO SCH ×4 (00:35→23:43)
[2020-11-06] MEDS: Hydrocortisone Sodium Succ 100 MG/2 ML VIAL IVP SCH ×2 (00:36→07:38)
[2020-11-06] MEDS: Doxycycline 100 MG in 0.9 % Sodium Chloride Mini Bag 100 ML IVPB SCH ×2 (02:47→15:22)
[2020-11-06] MEDS: Pantoprazole 40 MG VIAL IVP SCH ×2 (06:08→16:29)
[2020-11-06 07:00] LABS: Eosinophils % 0.2 %; Hematocrit 23.5 % (35.3-44.9); Hemoglobin 7.9 g/dL (11.5-15.4); Immature Granulocytes % 0.5 % (0-4); Lymphocytes # 0.4 K/mcL (0.6-4.6); Lymphocytes % 6.7 %; Mean Corpuscular HGB Conc 33.6 g/dL (31.6-35.5); Mean Corpuscular Hemoglobin 30.3 pg (28.0-33.3); Mean Platelet Volume 10.8 fL (9.4-12.4); Monocytes # 0.4 K/mcL (0.0-1.3); Monocytes % 6.5 %; Neutrophils # 4.8 K/mcL (1.6-8.9); Platelet Count 100 K/mcL (140-400); Red Blood Count 2.61 M/mcL (3.82-4.97); Red Cell Distribution Width 16.7 % (11.5-14.5); Segmented Neutrophils % 86.1 %; White Blood Count 5.5 K/mcL (4.3-11.1)
[2020-11-06 07:04] LABS: VBG Ionized Calcium 1.04 mmol/L (1.15-1.35)
[2020-11-06 07:24] LABS: Albumin 3.3 g/dL (3.5-5.7); Calcium 8.3 mg/dL (8.6-10.3); Phosphorous 3.8 mg/dL (2.7-4.5); Potassium 3.8 mEq/L (3.5-5.1)
[2020-11-06] MEDS: Calcium Acetate 667 MG CAPSULE PO SCH ×3 (07:38→16:29)
[2020-11-06] MEDS: lisinopriL 20 MG TABLET PO SCH (10:53)
[2020-11-06] MEDS: predniSONE 20 MG TABLET PO SCH (10:53)
[2020-11-06 14:40] LABS: Hematocrit 23.4 % (35.3-44.9); Hemoglobin 7.5 g/dL (11.5-15.4)
[2020-11-06] MEDS: Cefepime HCl 1,000 MG in Water for inj. (sterile) 20 ML IVP SCH (16:30)
[2020-11-07] MEDS: Doxycycline 100 MG in 0.9 % Sodium Chloride Mini Bag 100 ML IVPB SCH ×2 (01:16→14:31)
[2020-11-07 02:35] LABS: Eosinophils % 0.3 %; Hematocrit 21.4 % (35.3-44.9); Hemoglobin 7.1 g/dL (11.5-15.4); Lymphocytes # 0.7 K/mcL (0.6-4.6); Lymphocytes % 9.4 %; Mean Corpuscular HGB Conc 33.2 g/dL (31.6-35.5); Mean Corpuscular Hemoglobin 30.1 pg (28.0-33.3); Mean Corpuscular Volume 90.7 fL (83.0-100.0); Mean Platelet Volume 10.8 fL (9.4-12.4); Monocytes # 0.8 K/mcL (0.0-1.3); Monocytes % 10.2 %; Neutrophils # 6.2 K/mcL (1.6-8.9); Platelet Count 107 K/mcL (140-400); Red Blood Count 2.36 M/mcL (3.82-4.97); Red Cell Distribution Width 16.4 % (11.5-14.5); Segmented Neutrophils % 79.1 %; White Blood Count 7.8 K/mcL (4.3-11.1)
[2020-11-07 02:57] LABS: Calcium 8.6 mg/dL (8.6-10.3); Magnesium 1.9 mg/dL (1.6-2.6); Phosphorous 3.2 mg/dL (2.7-4.5); Potassium 3.7 mEq/L (3.5-5.1)
[2020-11-07] MEDS: Pantoprazole 40 MG VIAL IVP SCH (06:15)
[2020-11-07] MEDS: Calcium Acetate 667 MG CAPSULE PO SCH ×2 (07:58→11:17)
[2020-11-07] MEDS: hydrALAZINE 25 MG TABLET PO SCH ×2 (07:58→18:25)
[2020-11-07] MEDS: predniSONE 20 MG TABLET PO SCH (07:58)
[2020-11-07] MEDS: lisinopriL 20 MG TABLET PO SCH (07:58)
[2020-11-07 17:53] VITALS: BP 182/117
[2020-11-07] MEDS ORDERED: Doxycycline 100 MG in 0.9 % Sodium Chloride Mini Bag 100 ML IVPB SCH (18:00)
== END 2020-11-07 18:27 | disposition home or self-care (01) | DRG 720 ==
LOC: EMEROOARM 16:53 → ICNU 16:53 → SUATTDRO 23:45 → 2ANU 11-05 17:02
PROVIDERS: ADMIT Family Medicine; ATTEND Internal Medicine